=== PATIENT | male | born 2000 | race Two or more races ===

== ENCOUNTER 2020-02-17 06:06 | Emergency (ER) | payer SELFPAY ==
[~2020-02-17] VITALS: Ht 165.1 cm; Wt 63.5 kg
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
--- NOTE | 2020-02-17 06:23 | NUR ---
ED Nurse Note: ERMD at bedside.
[2020-02-17 06:26] VITALS: BP 120/72
[2020-02-17] MEDS ORDERED: LORazepam Inj 2mg/ml 1ml IV ONE ×2 (06:30→07:30)
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
[2020-02-17 06:48] LABS: APPEARANCE,URINE SLIGHTLY CLOUDY; BILIRUBIN, URINE NEGATIVE (NEGATIVE); COLOR,URINE PALE YELLOW; GLUCOSE, URINE (UA) NEGATIVE (NEGATIVE); KETONES,URINE NEGATIVE (NEGATIVE); LEUKOCYTE ESTERASE ,URINE 1+ (NEGATIVE); NITRITE,URINE NEGATIVE (NEGATIVE); PH,URINE 8 (4.5-8.0); PROTEIN,URINE NEGATIVE (NEGATIVE); UROBILINOGEN,URINE 1 MG/DL (0.0-1.0)
[2020-02-17 06:50] LABS: EOSINOPHILS % (AUTO) 1.7 % (0.0-3.0); HEMOGLOBIN 14.5 G/DL (14.2-18.0); LYMPHOCYTES % (AUTO) 28.9 % (20.0-45.0); MEAN CORPUSCULAR VOLUME 90 FL (80-99); MONOCYTES % (AUTO) 10.4 % (1.0-10.0); PLATELET COUNT 234 K/UL (150-450); RED BLOOD COUNT 4.53 M/UL (4.70-6.10); RED CELL DISTRIBUTION WIDTH 10.8 % (11.6-14.8); WHITE BLOOD COUNT 7.7 K/UL (4.8-10.8)
--- NOTE | 2020-02-17 06:54 | NUR ---
ED Nurse Note: Patient able to ambulate to the restroom unassisted for bowel movement. Will monitor return to bed.
[2020-02-17 07:07] LABS: ANION GAP 9 mmol/L (5-15); BLOOD UREA NITROGEN 10 mg/dL (7-18); CALCIUM 8.8 MG/DL (8.5-10.1); CARBON DIOXIDE 28 MMOL/L (21-32); CHLORIDE 104 MMOL/L (98-107); CREATININE 1.2 MG/DL (0.55-1.30); POTASSIUM 3.6 MMOL/L (3.5-5.1); SODIUM 141 MMOL/L (136-145)
--- NOTE | 2020-02-17 07:09 | NUR ---
ED Nurse Note: Patient pulled IV line apart and exprssed he didnt want anything in him after agreeign to IV fluid administration.
--- NOTE | 2020-02-17 07:10 | NUR ---
HAND-OFF: Report given to Cindy TOMLINSON.
[2020-02-17 07:17] LABS: ALANINE AMINOTRANSFERASE 22 U/L (12-78); ALBUMIN 4.2 G/DL (3.4-5.0); ALBUMIN/GLOBULIN RATIO 1.4 (1.0-2.7); ALKALINE PHOSPHATASE 86 U/L (46-116); ASPARTATE AMINO TRANSFERASE 20 U/L (15-37); BILIRUBIN,TOTAL 1.3 MG/DL (0.2-1.0)
[2020-02-17 07:20] LABS: BILIRUBIN,DIRECT 0.3 MG/DL (0.0-0.3)
--- NOTE | 2020-02-17 07:24 | NUR ---
ED Nurse Note: received pt from IVANIA Zheng for continuity of care. Pt on bed, awake and alert noted with flat affect. IV site patent and intact. Will continue to monitor.
--- NOTE | 2020-02-17 08:54 | NUR ---
ED Nurse Note: Pt on bed, asleep, VSS, NAD noted.
--- NOTE | 2020-02-17 09:09 | NUR ---
ED Nurse Note: IV removed without complications.
[2020-02-17 09:30] VITALS: BP 126/74
--- NOTE | 2020-02-17 09:30 | NUR ---
ER DISCHARGE NOTE: Patient is cleared to be discharged per ERMD, pt is aox4, on room air, with stable vital signs. pt was given dc and prescription instructions, pt was able to verbalize understanding, pt id band and iv site removed without complications. pt is able to ambulate with steady gait. pt took all belongings.
== END 2020-02-17 09:30 | disposition home or self-care (01) ==
LOC: EDBD 06:06 → EMR 06:18
DX: F41.9 Anxiety disorder, unspecified (principal); F17.210 Nicotine dependence, cigarettes, uncomplicated; R00.0 Tachycardia, unspecified; F12.90 Cannabis use, unspecified, uncomplicated
CPT/HCPCS: 36415; 80053; 80307; 81003; 82248; 85025; 96361; 96374; 96376; 99284; G0480; J7030